=== PATIENT | male | born 1985 | race Caucasian/White ===

== ENCOUNTER 2022-09-04 19:28 | Emergency (ER) | payer MEDICAID ==
[~2022-09-04] VITALS: Ht 177.8 cm; Wt 81.6 kg
--- NOTE | 2022-09-04 19:55 | NUR ---
BIBS FOR ESOPHAGEAL PAIN WHEN SWALLOWING S/P ETOH ON SATURDAY PT STATES "WAS VOMITING AFTER DRINKING". AMBULATORY, PLACED IN BED, AAOX4, BREATHJING UNLABORED SATURATING AT 97%RA.
--- NOTE | 2022-09-04 20:00 | NUR ---
AT BEDSIDE FOR EVAL.
[2022-09-04] MEDS ORDERED: LIDOCAINE VISCOUS 2% UD 15 ML UDC ONE (20:11)
[2022-09-04] MEDS ORDERED: ONDANSETRON HCL/PF 4 MG/2 ML VIAL ONE (20:11)
[2022-09-04] MEDS ORDERED: MAG HYDROX/AL HYDROX/SIMETH 30 ML UDC ONE (20:11)
--- NOTE | 2022-09-04 20:15 | NUR ---
BLOOD DRAWN AND SENT TO LAB
[2022-09-04 20:27] LABS: BASOPHILS # (AUTO) 0.3 K/uL (0.0-0.2); BASOPHILS % (AUTO) 3.7 % (0.0-2.0); EOSINOPHILS % (AUTO) 0.5 % (0.0-6.0); HEMATOCRIT 45 % (39-51); HEMOGLOBIN 15.7 g/dL (13.5-17.5); LYMPHOCYTES # (AUTO) 1.2 K/uL (0.8-4.8); LYMPHOCYTES % (AUTO) 14.5 % (20.0-44.0); MEAN CORPUSCULAR HGB CONC 35 g/dl (31.0-36.0); MEAN CORPUSCULAR VOLUME 84 fL (80-96); MONOCYTES # (AUTO) 0.6 K/uL (0.1-1.30); MONOCYTES % (AUTO) 7.5 % (2.0-12.0); NEUTROPHILS # (AUTO) 6.3 K/uL (1.8-8.9); NEUTROPHILS % (AUTO) 73.8 % (43.0-81.0); PLATELET COUNT (AUTO) 329 K/uL (150-450); RED BLOOD CELL COUNT(AUTO) 5.38 MIL/uL (4.5-6.0); WHITE BLOOD COUNT (AUTO) 8.6 K/uL (4.3-11.0)
[2022-09-04] MEDS ORDERED: LIDOCAINE VISCOUS 2% UD 15 ML UDC MM ONE (20:30)
[2022-09-04] MEDS ORDERED: MAG HYDROX/AL HYDROX/SIMETH 30 ML UDC PO ONE (20:30)
[2022-09-04] MEDS ORDERED: IV NS 0.9% 1,000 ML BAG IV ONE (20:30)
[2022-09-04] MEDS ORDERED: ONDANSETRON HCL/PF 4 MG/2 ML VIAL IVP ONE (20:30)
[2022-09-04] MEDS ORDERED: IOHEXOL-300 100 ML VIAL IV ONE (20:31)
[2022-09-04] MEDS ORDERED: IV NS 0.9% 250 ML IV ONE (20:31)
[2022-09-04] MEDS ORDERED: CT SWABBABLE VALVE TRANS SET 1 EA INFUS.SET MC ONE (20:31)
--- NOTE | 2022-09-04 20:41 | NUR ---
[facility] ROOM [address] [facility]
[2022-09-04 21:06] LABS: ALBUMIN 4.5 g/dL (3.4-5.0); BILIRUBIN,DIRECT 0.3 mg/dL (0.0-0.2); BILIRUBIN,TOTAL 1.8 mg/dL (0.2-1.0); CALCIUM, SERUM 9.5 mg/dL (8.5-10.1)
--- NOTE | 2022-09-04 21:58 | NUR ---
IV removed. Catheter intact and site benign. Pressure and 4x4 applied to site. No bleeding noted.Patient discharged to home in stable condition. Written and verbal after care instructions given. Patient verbalizes understanding of instruction.
[2022-09-04 21:59] VITALS: BP 135/89
== END 2022-09-04 21:58 | disposition home or self-care (01) ==
LOC: ER 19:33
DX: K21.9 Gastro-esophageal reflux disease without esophagitis (principal); E80.6 Other disorders of bilirubin metabolism; R11.10 Vomiting, unspecified
CPT/HCPCS: 99285; 74177; 96374; 71045; 96361; 85025; 80048; 83690; 80076; 36415; 85730; J2405; J7030; J7050; Q9967